=== PATIENT | male | born 2000 | race Caucasian/White ===

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

== ENCOUNTER → 2021-02-20 | Outpatient (REF) ==
[~2021-02-20] MED LIST: ENDO5TAB PO
--- NOTE | 2021-02-20 10:36 | REP ---
INDICATION: SOB COMPARISON: None. TECHNIQUE: PA and lateral. FINDINGS: The mediastinum and cardiac silhouette are normal. The lung noyola are clear and without acute consolidation, effusion, or pneumothorax. The skeletal structures are intact and normal. IMPRESSION: No acute cardiopulmonary process. <Electronically signed by Xavi Prasad > 02/20/21 1035
== END ==
LOC: M PLAIMG 10:13
PROVIDERS: ATTEND Internal Medicine
DX: R06.02 Shortness of breath (principal)